=== PATIENT | male | born 2000 | race Two or more races ===

== ENCOUNTER 2025-01-06 08:08 | Emergency (ER) | payer MEDICAID, SELFPAY ==
[2025-01-06 08:26] VITALS: BP 107/65; PULSE 55; RESP 16; TEMP 36.9; O2SAT 99; BMI 23.6
--- NOTE | 2025-01-06 08:32 | XR_ITS ---
Examination: PA lateral chest 2 views TECHNIQUE: Upright PA lateral chest 2 views Date and time: January 06, 2025 0834 hours, comparison 12/15/2005 INDICATIONS: Coughing dose bleeds beginning 3 weeks ago. FINDINGS: Normal heart size. Lungs are clear. The osseous structures are intact. IMPRESSION: No active disease.
[2025-01-06 09:28] LABS: Basophils # (Auto) 0.0 Thou/mm3 (0.0-0.2); Basophils % (Auto) 1 % (0-2.5); Eosinophils # (Auto) 0.1 Thou/mm3 (0.0-0.5); Eosinophils % (Auto) 1 % (0-10); Hematocrit 44.6 % (41.0-53.0); Hemoglobin 15.5 g/dL (13.5-16.0); Immature Granulocytes Auto 0.02 Thou/mm3 (0.00-0.00); Lymphocytes # (Auto) 1.2 Thou/mm3 (1.0-4.8); Lymphocytes % (Auto) 29 % (10-50); Mean Corpuscular HGB Conc 34.8 g/dl (31.0-37.0); Mean Corpuscular Hemoglobin 31.7 pg (25.0-35.0); Mean Corpuscular Volume 91 fL (80-100); Monocytes # (Auto) 0.3 Thou/mm3 (0.0-0.8); Monocytes % (Auto) 8 % (0-12); Neutrophils # (Auto) 2.7 Thou/mm3 (1.8-7.7); Neutrophils % (Auto) 61 % (37-80); Nucleated Red Blood Cell # 0.00 Thou/mm3 (0.00-0.00); Nucleated Red Blood Cell % 0 /100 WBC (0); Platelet Count 281 Thou/mm3 (140-440); RDW Standard Deviation 40.1 fL (35.1-43.9); Red Blood Count 4.89 Miln/mm3 (4.50-5.90); White Blood Count 4.3 Thou/mm3 (3.8-10.6)
[2025-01-06 09:47] LABS: Strep A Rapid Negative (Negative)
[2025-01-06 09:56] LABS: Alanine Aminotransferase 11 U/L (10-49); Albumin, Serum 4.9 gm/dL (3.5-5.0); Albumin/Globulin Ratio 1.8 (1.2-2.2); Alkaline Phosphatase 80 U/L (46-116); Anion Gap 9 (7-16); Aspartate Amino Transferase 24 U/L (0-34); BUN/Creatinine Ratio 10 Ratio (12-20); Bilirubin,Total 1.2 mg/dL (0.3-1.2); Blood Urea Nitrogen 9 mg/dL (9-23); Calcium 10.1 mg/dL (8.3-10.6); Calcium (Corrected) 10.1 mg/dL (8.5-10.1); Carbon Dioxide 28.4 mMol/L (20.0-31.0); Chloride 104 mMol/L (98-107); Creatinine (Component) 0.9 mg/dL (0.6-1.3); Estimated Creatinine Clearance 123.5 mL/min (>60); Globulin 2.7 gm/dL (2.3-3.5); Glucose 95 mg/dL (74-106); Osmolality,Calculated 279 (275-295); Potassium 4.1 mMol/L (3.4-5.1); Sodium 141 mMol/L (136-145); Total Protein 7.6 gm/dL (5.7-8.2); eGFR > 60 See Note
--- NOTE | 2025-01-06 10:09 | EDNOTE_ITS ---
<Statement entered by Edel Curran MD - 01/25/25 06:05> As co-signing physician, I was present and available for consult prn. I concur with the plan and care as documented by the midlevel provider. ED General RME/HPI General Chief complaint: General Adult/Misc Complain Stated complaint: COUGH, FREQUENT NOSE BLEEDS, FATIGUE Time Seen by Provider: 01/06/25 08:32 Arrival date/time: 01/06/25 08:08 24-year-old male presents to the emergency department for complaint of cough, congestion runny nose generalized body aches patient also reports nosebleeds. Patient ports no fever nausea vomiting Limitations: no limitations Related Data Previous Rx's ?Medication ?Instructions ?Recorded metoclopramide HCl 10 mg tablet 10 mg PO Q6H PRN nause a and 08/09/20 (Reglan) vomiting #20 tabs ibuprofen 600 mg tablet 600 mg PO Q8H PRN pain #30 t abs 07/18/22 Allergies Allergy/AdvReac Type Severity Reaction Status Date / Time No Known Allergies Allergy Verified 07/18/22 08:28 Review of Systems Review of Systems Systems Reviewed: All systems reviewed, normal except as documented Constitutional Constitutional: Reports system reviewed and no additional complaints, except as documented, Denies fever(s) and Denies headache(s) Eyes Eyes: Reports system reviewed and no additional complaints, except as documented and Denies blurry vision ENT Ears, Nose, Mouth, and Throat: Reports system reviewed and no additional complaints, except as documented, Denies headache(s), Denies nasal congestion and Denies nasal discharge Cardiovascular Cardiovascular: Reports system reviewed and no additional complaints, except as documented, Denies chest pain and Denies dyspnea Respiratory Respiratory: Reports system reviewed and no additional complaints, except as documented, Denies chest congestion, Denies cough and Denies dyspnea Gastrointestinal Gastrointestinal: Reports system reviewed and no additional complaints, except as documented and Denies abdominal pain Integumentary/Breasts Skin/Breast: Reports system reviewed and no additional complaints, except as documented and Denies rash Neurologic Neurologic: Reports system reviewed and no additional complaints, except as documented, Reports as per HPI and Denies headache(s) Past Medical History Past Medical History CARDIAC: Negative Congestive Heart Failure RESPIRATORY: Negative Chronic Obstructive Pulmonary Disease (COPD) GENITOURINARY: Negative Renal Disease ENDOCRINE: Negative Diabetes Mellitus Type 1 or Diabetes Mellitus Type 2 Social History SMOKING STATUS: Never smoker ED Exam General Limitations: Present no limitations General appearance: Present alert and in no apparent distress Head Head exam: Present atraumatic Eye Eye exam: Present normal appearance, PERRL and EOMI; Absent conjunctival injection ENT ENT exam: Present normal exam, normal oropharynx and mucous membranes moist Neck Neck exam: Present normal inspection, full ROM and trachea midline; Absent tenderness, meningismus or lymphadenopathy Chest Chest inspection: Present normal inspection and symmetric chest wall rise Respiratory Respiratory exam: Present normal lung sounds bilaterally; Absent respiratory distress or wheezes Cardiovascular Cardiovascular exam: Present regular rate, normal rhythm and normal heart sounds Abdominal Exam Abdominal exam: Present soft and normal bowel sounds; Absent distention, tenderness, guarding, rebound or rigidity Extremities Exam Extremities exam: Present normal inspection and full ROM Back Exam Back exam: Present normal inspection and full ROM Neurological Exam Neurological exam: Present alert, oriented X3 and CN II-XII intact Psychiatric Psychiatric exam: Present normal affect and normal mood Skin Skin exam: Present warm, dry, intact and normal color Course Quality Measures none Orders Category Date Time Status Bedside COVID-19 Antigen Test NOW Care 01/06/25 08:32 Completed Bedside Influenza A&B Antigen Test NOW Care 01/06/25 08:32 Completed XR chest 2V Stat Exams 01/06/25 08:32 Completed CBC Stat Lab 01/06/25 08:47 Completed Comprehensive Metabolic Panel Stat Lab 01/06/25 08:47 Completed Strep A Rapid Stat Lab 01/06/25 08:47 Completed Vital Signs Vital signs: Vital Signs Temperature 98.5 F 01/06/25 08:26 Pulse Rate 55 L 01/06/25 08:26 Respiratory Rate 16 01/06/25 08:26 Blood Pressure 107/65 01/06/25 08:26 Pulse Oximetry (%) 99 01/06/25 08:26 Oxygen Delivery Method Room Air 01/06/25 08:26 O2 saturation 9 9% room air within normal limits Discharge Plan Plan Patient Disposition: HOME (Self Care) Discharge Disposition comment: stable Prescriptions/Referrals Prescriptions/Med Rec: No Action metoclopramide HCl [Reglan] 10 mg tablet 10 mg PO Q6H PRN (Reason: nausea and vomiting) Qty: 20 0RF ibuprofen 600 mg tablet 600 mg PO Q8H PRN (Reason: pain) Qty: 30 0RF Referrals: João Castorena MD [Primary Care Provider, [facility]] - 01/07/25 Problem List Clinical Impression: Cough, Body aches, Epistaxis Patient/Caregiver Discharge Instructions Education Materials: ED Epistaxis (Adult) Additional Instructions: Please follow up with your primary care doctor in the next 24-48hrs for any wor sening symptoms return here immediately Print Language: Occitan Stand Alone Forms: [employer] Info., Work/School Release, Patient Portal Info Letter 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 Patient ports no fever nausea vomiting On exam patient well-appearing patient does not appear ill or toxic no acute distress Lab work and imaging obtained no acute emergent findings noted Clinically patient well-appearing does not appear ill or toxic Patient discharged home in no distress to follow-up with primary care doctor in the next 24 to 48 hours and for any worsening symptoms to return to the ER immediately Clinical Information Provided by patient Medical Records Reviewed None Meds/Rx Considered, not Ordered None Labs/Rad/Tests considered, not Ordered Describe details: Obtained Chronic Illness/Social Conditions which may negatively complicate care or outcome(s)-explain: None or not applicable EKG EKG not done Lab Interpretation Labs: interpreted by me Imaging Imaging interpretation: interpreted by me Provider imaging interpretation(s): Reviewed by Radiology reports / interpretation(s): Reviewed by me Medication Administration(s) Ordered Diagnosis Differential diagnosis: Anxiety, stress reaction, viral illness, URI Most likely dx, and/or detailed dx discussion: Viral illness Dispositon Disposition: Discharge Home
== END 2025-01-06 10:18 | disposition home or self-care (01) ==
PROVIDERS: Nurse Practitioner Primary Care; Emergency Provider Emergency Medicine; PCP Family Medicine
DX: R05.9 Cough, unspecified (principal); R04.0 Epistaxis
CPT/HCPCS: 36415; 71046; 80053; 85025; 87400; 87651; 87811; 99283